=== PATIENT | male | born 1960 | race Caucasian/White ===

== ENCOUNTER 2017-10-24 08:34 | Emergency (ER) | payer OTHER ==
[2017-10-24 08:47] VITALS: BP 121/81
--- NOTE | 2017-10-24 09:04 | UC ---
FLU HPI - HPI Summary HPI Summary: ONSET OF ST, RHINITIS, COUGH, BODY ACHES AND SUBJECTIVE FEVER YESTERDAY. LAST DOSE TYLENOL 5.5 HOURS AGO. HAD A FLU SHOT 06/2017. - History of Current Complaint Chief Complaint: UCGeneralIllness Stated Complaint: COLD SYMPTOMS Time Seen by Provider: 10/24/17 08:49 Hx Obtained From: Patient Onset/Duration: Gradual Onset, Lasting Hours, Still Present Severity Currently: Moderate Severity Initially: Moderate Pain Intensity: 3 Pain Scale Used: 0-10 Numeric Associated Signs & Symptoms: Positive: Cough, Sore Throat, Nasal Congestion - Allergy/Home Medications Allergies/Adverse Reactions: Allergies Allergy/AdvReac Type Severity Reaction Status Date / Time No Known Allergies Allergy Verified 10/24/17 08:47 Home Medications: Home Medications Brimonidine/Timolol OPTH(NF) [Combigan OPHTH (NF)] 1 drop BOTH EYES DAILY [History Confirmed 10/24/17] Lansoprazole SOLUTAB* [Prevacid SOLUTAB*] 15 mg PO DAILY 10/24/17 [History Confirmed 10/24/17] Tadalafil [Cialis] 20 mg PO DAILY 10/24/17 [History Confirmed 10/24/17] Tamsulosin CAP* [Flomax CAP*] 0.4 mg PO DAILY 10/24/17 [History Confirmed ] levETIRAcetam TAB* [Keppra TAB*] 1,000 mg PO BID 10/24/17 [History Confirmed ] PMH/Surg Hx/FS Hx/Imm Hx Other Neurological History: OLIGODENDROGLIOMA - Surgical History Surgical History: None Surgery Procedure, Year, and Place: BIOPSY BRAIN 05/2014, 6 WEEKS OF RADIATION AND 6 MONTHS CHEMO FINISHED 07/14/2014 AND 01/2015. - Family History Known Family History: Negative: Hypertension - Social History Alcohol Use: Daily Alcohol Amount: 1 drink a day Substance Use Type: None Smoking Status (MU): Never Smoked Tobacco Review of Systems Constitutional: Fever, Fatigue ENT: Sore Throat, Nasal Discharge Respiratory: Cough Cardiovascular: Negative Gastrointestinal: Negative Musculoskeletal: Myalgia All Other Systems Reviewed And Are Negative: Yes Physical Exam Triage Information Reviewed: Yes Appearance: Well-Appearing, No Pain Distress, Well-Nourished Vital Signs: Initial Vital Signs Temp 98.8 F 10/24/17 08:43 Pulse 62 10/24/17 08:43 Resp 18 10/24/17 08:43 BP 121/81 10/24/17 08:43 Pulse Ox 99 10/24/17 08:43 Vital Signs Reviewed: Yes Eyes: Positive: Conjunctiva Clear ENT: Positive: Hearing grossly normal, Pharynx normal, TMs normal Neck: Positive: Supple, Nontender, No Lymphadenopathy Respiratory Exam: Normal Cardiovascular Exam: Normal Abdomen Description: Positive: Soft Musculoskeletal: Positive: No Edema Neurological: Positive: Alert Psychological: Positive: Age Appropriate Behavior Skin: Negative: rashes Diagnostics - Laboratory Diagnostic Studies Completed/Ordered: FLU SWAB NEGATIVE Flu Course/Dx - Differential Dx/Diagnosis Provider Diagnoses: VIRAL SYNDROME Discharge - Discharge Plan Condition: Stable Disposition: HOME Patient Education Materials: Viral Syndrome (ED) Referrals: Jesus Murrieta PA [Primary Care Provider] - If Needed Additional Instructions: YOUR SYMPTOMS ARE LIKELY VIRALLY MEDIATED AND SHOULD RESOLVE ON THEIR OWN WITH TIME. REST, HYDRATE, OTC MEDS NEEDED. SEEK FOLLOW-UP IF YOU ARE NOT IMPROVING OVER THE NEXT 1-2 WEEKS. VIRAL SYNDROME: The physician has diagnosed a viral infection. Viruses not only cause "colds," but can cause many different symptoms including generalized aching, fever, headache, cough, diarrhea, nausea, vomiting, and fatigue. The treatment, for the most part, is simply relief of symptoms. This means that antibiotics are usually not given. Rest, fluids, pain medications and, occasionally, medication for the specific symptoms that are most bothersome will be prescribed. Go to the ED if you develop any new or unusual symptoms such as severe headache, stiff neck, high fever, chest pain, productive cough, or shortness of breath. You should be rechecked if you don't see marked improvement within 10 to 14 days.
== END 2017-10-24 09:43 | disposition home or self-care (01) ==
LOC: UCCORT 08:34
DX: Z72.89 Other problems related to lifestyle (principal); B34.9 Viral infection, unspecified
CPT/HCPCS: 87502; 99211; G0463

== ENCOUNTER 2020-06-01 14:02 | Observation (INO) ==
[2020-06-01 15:27] LABS: Hematocrit 47 % (42-52); Hemoglobin 16.7 g/dL (14.0-18.0); Mean Corpuscular HGB Conc 36 g/dL (31-36); Mean Corpuscular Hemoglobin 33 pg (27-31); Mean Corpuscular Volume 94 fL (80-94); Mean Platelet Volume 9.4 fL (7.4-10.4); Platelet Count 183 10^3/uL (150-450); Red Blood Count 4.99 10^6 /uL (4.18-5.48); Red Cell Distribution Width 13 % (10-15); White Blood Count 5.6 10^3/uL (3.5-10.8)
[2020-06-01] MEDS ORDERED: Senna TAB 8.6 mg TAB PO PRN (15:29)
[2020-06-01] MEDS ORDERED: Ondansetron 4 mg VIAL 2 MG/ML 2 ml VIAL IV PRN (15:29)
[2020-06-01 15:45] LABS: BUN/Creatinine Ratio 12.6 (8-20); Calcium 9.6 mg/dL (8.6-10.3); EGFR African American 98.2 (>60); EGFR Non-African American 81.1 (>60); Potassium 4.3 mmol/L (3.5-5.0)
[2020-06-01 16:13] LABS: TSH Ultra Thyroid Stim Horm 1.59 mcIU/mL (0.34-5.60)
[2020-06-01 16:24] LABS: Folate 18.29 ng/mL (>3.99)
[2020-06-01] MEDS ORDERED: Latanoprost 0.005% 2.5 ml BTL BOTH EYES SCH (18:00)
[2020-06-01] MEDS ORDERED: Gadoteridol (CONTRAST) 279.3 MG/ML 10 ML IV ONE (19:48)
[2020-06-02 06:26] LABS: ABS Eosinophils 0.2 10^3/ul (0-0.6); ABS Lymphocytes 1.9 10^3/ul (1.0-4.8); ABS Monocytes 0.5 10^3/ul (0-0.8); ABS Neutrophils 3.5 10^3/ul (1.5-7.7); Eosinophil % 2.5 %; Hematocrit 45 % (42-52); Lymphocyte % 30.3 %; Mean Corpuscular HGB Conc 36 g/dL (31-36); Mean Corpuscular Hemoglobin 34 pg (27-31); Mean Corpuscular Volume 94 fL (80-94); Mean Platelet Volume 9.1 fL (7.4-10.4); Nucleated Red Blood Cells % 0.1; Platelet Count 164 10^3/uL (150-450); Red Blood Count 4.79 10^6 /uL (4.18-5.48); Red Cell Distribution Width 13 % (10-15); White Blood Count 6.1 10^3/uL (3.5-10.8)
[2020-06-02 06:27] LABS: Albumin 4.1 g/dL (3.2-5.2); Albumin/Globulin Ratio 1.7 (1-3); EGFR African American 101.9 (>60); EGFR Non-African American 84.2 (>60); Globulin 2.4 g/dL (2-4); HDL Cholesterol 56.6 mg/dL; Total Bilirubin 1.3 mg/dL (0.2-1.0); Total Protein 6.5 g/dL (6.4-8.9)
[2020-06-02] MEDS ORDERED: BRIMONIDINE BOTH EYES SCH (09:00)
[2020-06-02] MEDS ORDERED: TIMOLOL BOTH EYES SCH (09:00)
[2020-06-02 11:29] VITALS: BP 108/68
[2020-06-02] MEDS ORDERED: Gadoteridol (CONTRAST) 279.3 MG/ML 10 ML IV ONE (15:29)
== END 2020-06-02 17:50 | disposition home or self-care (01) ==
LOC: MEDTELE 14:02 → ED 14:02 → MEDTELE 17:50
PROVIDERS: ADMIT Internal Medicine; ATTEND Student in an Organized Health Care Education/Training Program